=== PATIENT | female | born 1985 | race Caucasian/White ===

== ENCOUNTER → 2017-02-06 | Outpatient (CLI) | payer BC | LOC: EROP 10:35 | DX: T14.8 Other injury of unspecified body region (principal); Z23 Encounter for immunization | CPT/HCPCS: 90471 ==

== ENCOUNTER 2021-10-27 10:55 | Emergency (ER) | payer OTHER ==
[~2021-10-27] VITALS: Ht 160 cm; Wt 111.1 kg
== END 2021-10-27 15:35 | disposition home or self-care (01) ==
LOC: ER1 10:55
DX: U07.1 COVID-19 (principal); Z23 Encounter for immunization; Z88.8 Allergy status to other drugs, medicaments and biological substances
CPT/HCPCS: 99283; J1100; J1650; M0247